=== PATIENT | female | born 1990 | race Caucasian/White ===

== ENCOUNTER 2018-11-18 13:34 | Outpatient (CLI) | payer BC ==
--- NOTE | 2018-11-18 16:16 | MRI ---
MRI Lower Ext Jt Lt WO Con History: [M23.92 internal derangement left knee] Comparison: None. Findings: Medial meniscus: Intact Lateral meniscus: Intact The ACL, PCL, LCL, MCL are all intact. Extensor mechanism: The quadriceps tendon patella and patellar tendon are intact. Mild trochlear dysplasia. The tibial tuberosity-trochlear groove distance measures 2.2 cm. There is s uperolateral Hoffa's fat pad edema. Cartilage: Patellofemoral compartment: Intact Medial compartment: Intact Lateral compartment: Intact Impression: 1. Increased tibial tuberosity-trochlear groove distance of 22 mm with superolateral Hoffa's fat ramandeep a suggests patellar maltracking. 2. Low-grade increased fluid signal in the posterior medial meniscocapsular junction with a ganglion pseudocyst along the posterior margin of the PCL may be sequela of prior injury. No acute meniscal pa thology.
== END 2018-11-18 13:35 | disposition home or self-care (01) ==
LOC: SCSMRI 13:34
PROVIDERS: ATTEND Orthopaedic Surgery
DX: M23.92 Unspecified internal derangement of left knee (principal)